=== PATIENT | male | born 1970 | race Caucasian/White ===

== ENCOUNTER 2023-06-19 14:01 | Emergency (ER) | payer BC, SELFPAY ==
--- NOTE | ~2023-06-19 | US_ITS ---
EXAMINATION: US SCROTUM CLINICAL INFORMATION: Left testicular and inguinal pain. Question hernia.. COMPARISON: None available. TECHNIQUE: A sonogram of the scrotum was performed assessing ramirez-scale appearance and color Doppler flow. Spectral Doppler analysis of the arterial and venous flow were performed in the testes bilaterally. FINDINGS: RIGHT: Right testicle measures 4.0 2.2 x 2.5 cm, volume 11.5 mL. No focal testicular parenchymal lesions are visualized. Spectral Doppler analysis of the arterial and venous flow is normal in the right testis. Right epididymal head is normal in size with a small anechoic cyst measuring 0.2 x 0.2 x 0.2 cm.. No right hydrocele or varicocele is seen. Right epididymal Doppler flow is normal. LEFT: Left testicle measures 4.4 x 2.2 x 2.9 cm, volume 13.3 mL. No focal testicular parenchymal lesions are visualized. Spectral Doppler analysis of the arterial and venous flow is normal in the left testis. Left epididymal head is normal in size. There is complex echogenic left hydrocele. There is no varicocele is seen. Left epididymal Doppler flow is normal. There is incidental finding of left epidural head appendix. There is no evidence of left inguinal hernia. US/US scrotum IMPRESSION: 1. Complex left hydrocele. 2. Small right epididymal cyst. 3. The testes are unremarkable. 4. No evidence of left inguinal hernia. 5. Right epididymal cyst. 6.. Incidental finding of left epididymal head appendix
--- NOTE | ~2023-06-19 | US_ITS ---
EXAMINATION: US SCROTUM CLINICAL INFORMATION: Left testicular and inguinal pain. Question hernia.. COMPARISON: None available. TECHNIQUE: A sonogram of the scrotum was performed assessing ramirez-scale appearance and color Doppler flow. Spectral Doppler analysis of the arterial and venous flow were performed in the testes bilaterally. FINDINGS: RIGHT: Right testicle measures 4.0 2.2 x 2.5 cm, volume 11.5 mL. No focal testicular parenchymal lesions are visualized. Spectral Doppler analysis of the arterial and venous flow is normal in the right testis. Right epididymal head is normal in size with a small anechoic cyst measuring 0.2 x 0.2 x 0.2 cm.. No right hydrocele or varicocele is seen. Right epididymal Doppler flow is normal. LEFT: Left testicle measures 4.4 x 2.2 x 2.9 cm, volume 13.3 mL. No focal testicular parenchymal lesions are visualized. Spectral Doppler analysis of the arterial and venous flow is normal in the left testis. Left epididymal head is normal in size. There is complex echogenic left hydrocele. There is no varicocele is seen. Left epididymal Doppler flow is normal. There is incidental finding of left epidural head appendix. There is no evidence of left inguinal hernia. US/US scrotum doppler IMPRESSION: 1. Complex left hydrocele. 2. Small right epididymal cyst. 3. The testes are unremarkable. 4. No evidence of left inguinal hernia. 5. Right epididymal cyst. 6.. Incidental finding of left epididymal head appendix
--- NOTE | 2023-06-19 14:29 | ED.GENADULT ---
HPI - General Adult General Chief complaint: Urogenital-Male Stated complaint: ? Hernia Time Seen by Provider: 06/19/23 20:42 Related Data Allergies Allergy/AdvReac Type Severity Reaction Status Date / Time No Known Allergies Allergy Verified 06/19/23 14:34 [facility] Social History Social History Advance Directives: No Advance Directives Information Provided: No Physical Exam ED Vital Signs: Vital Signs - 24 hr 06/19/23 14:30 06/19/23 19:52 Temperature 98.2 F 98.0 F Pulse Rate 49 L 53 Respiratory Rate 18 18 Blood Pressure 143/77 H 125/76 Pulse Oximetry 98 98 Oxygen Delivery Method Room Air Room Air BMI result Body Mass Index 25.8 Course Course Course Narrative: RME:?53 yo male here w/ pain in left testicle x1 week. states he was shoveling snow and moving boxes at onset of pain. hx of left inguinal hernia with mesh repair 15 yrs ago, feels similar. denies dysuria, hematuria, N/V. regular BM. states testicle is ttp. does not believe it's higher than the other. exam limited in triage. abd soft nt/nd. nontoxic appearing. Plan for US Full HPI, ROS and PE to be performed by the primary ED provider. Discharge Plan Discharge Clinical Impression: Left hydrocele Patient Disposition: Home, Self-Care Instructions: Hydrocele (ED) Additional Instructions: Avoid standing for long hours/avoid lifting heavy stuff Follow-up with urologist for further care Referrals: Obdulio Almanza MD [Physician] - 2 weeks Discharge Date/Time: 06/19/23 21:02
[2023-06-19 14:30] VITALS: BP 143/77; PULSE 49; RESP 18; TEMP 36.8; O2SAT 98; BMI 25.8
[2023-06-19 19:52] VITALS: BP 125/76; PULSE 53; RESP 18; TEMP 36.7; O2SAT 98
--- NOTE | 2023-06-19 20:33 | PC.NURSE ---
Patient reports that he was lifting boxes last week in the snow and he twisted the wrong way. Denies difficulty with urinating. resp even and unlabored. abdomen soft non tender.
--- NOTE | 2023-06-19 20:52 | ED_ITS ---
HPI - Male Genitourinary General Chief complaint: Urogenital-Male Stated complaint: ? Hernia Time Seen by Provider: 06/19/23 20:42 Source: patient Mode of arrival: ambulatory Limitations: no limitations History of Present Illness HPI Narrative: Patient apparently lifting heavy boxes 5 days ago noticed sudden swelling in the left testicle area no significant pain , increases on standing history of right inguinal repair years ago Related Data Allergies Allergy/AdvReac Type Severity Reaction Status Date / Time No Known Allergies Allergy Verified 06/19/23 14:34 Review of Systems 2 Review of Systems: Yes all other systems are reviewed and are negative [facility] Social History Social History Advance Directives: No Advance Directives Information Provided: No Physical Exam 2 Vital Signs: Vital Signs: Last Vital Signs Temp 98.0 F 06/19/23 19:52 Pulse 53 06/19/23 19:52 Resp 18 06/19/23 19:52 BP 125/76 06/19/23 19:52 Pulse Ox 98 06/19/23 19:52 O2 Del Method Room Air 06/19/23 19:52 BMI result Body Mass Index 25.8 : Male genitals images: 1. Small left hydrocele mild tenderness right testicle normal no hernia palpable Medical Decision Making Medical Decision Making MDM Narrative: Patient with small left hydrocele advised to follow with urologist no hernia palpable Independent Interpretation I performed an independent interpretation of an: Ultrasound Radiology Impression Discussion of test interpretation with radiology: I have reviewed the radiologist's reading. Discharge Plan Discharge Clinical Impression: Left hydrocele Patient Disposition: Home, Self-Care Instructions: Hydrocele (ED) Additional Instructions: Avoid standing for long hours/avoid lifting heavy stuff Follow-up with urologist for further care Referrals: Obdulio Almanza MD [Physician] - 2 weeks Discharge Date/Time: 06/19/23 21:02
--- NOTE | 2023-06-19 20:53 | MHC.EDTECH ---
provider said not to collect urine sample .
== END 2023-06-19 21:02 | disposition home or self-care (01) ==
PROVIDERS: Emergency Provider Internal Medicine; PCP Hospitalist
DX: N43.2 Other hydrocele (principal); N50.812 Left testicular pain
CPT/HCPCS: 76870; 93975; 99281; 99284